=== PATIENT | female | born 1990 | race Caucasian/White ===

== ENCOUNTER 2022-06-27 14:16 | Emergency (ER) | payer OTHER ==
[2022-06-27 16:16] LABS: #Eosinphils 0.1 10x3/uL (0.0-0.5); #Monocytes 0.6 10x3/uL (0.0-1.1); #Neutrophils 5.2 10x3/uL (1.5-8.4); %Basophils 0.2 % (0.0-2.0); %Eosinophils 1.2 % (0.0-6.0); %Lymphocytes 28.6 % (18.0-47.0); %Monocytes 7.7 % (0.0-10.0); %Neutrophils 61.9 % (40.0-75.0); Hemoglobin 12.2 g/dL (12.0-15.5); Platelet Count 258 10x3/uL (150-450); Red Blood Cell (RBC) Count 5.08 10x6/uL (3.90-5.03); White Blood Cell (WBC) Count 8.3 10x3/uL (3.5-10.5)
[2022-06-27] MEDS ORDERED: Metoclopramide HCl 10 MG/2 ML VIAL ONE (16:19)
[2022-06-27] MEDS ORDERED: methylPREDNISolone Sod Succ/PF 125 MG/2 ML VIAL ONE (16:19)
[2022-06-27 16:21] LABS: Anion Gap 13 mmol/L (10-20); BUN (Urea Nitrogen) 12 mg/dL (7.0-18.7); Bilirubin, Total 0.3 mg/dL (0.2-1.2); Calc. Creatinine Clearance 0 mL/min (70-130); Calcium 9.3 mg/dL (7.8-10.44); Carbon Dioxide 23 mmol/L (22-29); Chloride 102 mmol/L (98-107); Estimated GFR 118; Glucose 87 mg/dL (70-105); Potassium 4.3 mmol/L (3.5-5.1); Protein, Total 7.3 g/dL (6.0-8.3); Sodium 134 mmol/L (136-145)
[2022-06-27] MEDS ORDERED: diphenhydrAMINE 50 MG/ML VIAL ONE (16:21)
[2022-06-27] MEDS ORDERED: Ketorolac Tromethamine 30 MG/ML VIAL ONE (16:21)
[2022-06-27 16:22] LABS: ALT (SGPT) 38 U/L (8-55); AST (SGOT) 26 U/L (5-34); Alkaline Phosphatase 65 U/L (40-110); Globulin 3.3 g/dL (2.4-3.5)
[2022-06-27] MEDS ORDERED: Magnesium 2 GM/50 ML BAG (IN WATER) ONE (16:22)
[2022-06-27 16:28] LABS: BHCG - Serum Negative (NEGATIVE); Pregs Control Background? CLEAR/WHITE (CLR/WHITE); Pregs Control Bar Appear? YES (CONTROL BAR)
[2022-06-27] MEDS ORDERED: SODIUM BENZOATE IVPB SCH (16:45)
[2022-06-27] MEDS ORDERED: SODIUM CHLORIDE 0.9% IVPB SCH (16:45)
[2022-06-27] MEDS ORDERED: CAFFEINE IVPB SCH (16:45)
[2022-06-27 17:09] LABS: Bilirubin Neg (Negative); Blood, Urine Negative (Negative); Glucose, Urine (Dipstick) Normal (Negative); Ketone, Urine Negative (Negative); Leukocyte Negative (Negative); Nitrite Negative (Negative); Protein, Urine (Dipstick) Negative (Neg-Trace); Specific Gravity, Urine 1.015 (1.005-1.030); Urobilinogen Normal mg/dL (Less than 2)
[2022-06-27 17:10] LABS: Clarity Clear (Clear)
== END 2022-06-27 18:40 | disposition home or self-care (01) ==
LOC: CSHERS 14:16
DX: R51.9 Headache, unspecified (principal)
CPT/HCPCS: 80053; 81003; 84703; 85025; 96365; 96368; 96375; J0706; J1200; J1885; J2765; J2930; J3475; J7050